=== PATIENT | male | born 1940 | race Hispanic/Latino ===

== ENCOUNTER 2016-12-02 18:48 | Emergency (ER) | payer MEDICARE, MEDICAID ==
[2016-12-02] MEDS ORDERED: HYDRALAZINE25 MG PO (19:01)
[2016-12-02] MEDS ORDERED: POTASSIUM CITR15 MEQ PO (19:01)
[2016-12-02] MEDS ORDERED: ULTRAM50 M1 PO (19:43)
[2016-12-02 19:56] VITALS: BP 132/67
== END 2016-12-02 19:47 | disposition home or self-care (01) ==
LOC: ED 18:48
DX: R10.9 Unspecified abdominal pain (principal); K40.90 Unilateral inguinal hernia, without obstruction or gangrene, not specified as recurrent; M19.90 Unspecified osteoarthritis, unspecified site